=== PATIENT | female | born 1945 | race Asian ===

== ENCOUNTER 2024-10-30 02:03 | Emergency (ER) | payer OTHER, SELFPAY ==
[2024-10-30 02:10] VITALS: BP 170/91; PULSE 84; RESP 18; TEMP 36.7; O2SAT 98; BMI 30.8
--- NOTE | 2024-10-30 02:26 | PD.EDRME ---
Rapid Medical Screening Exam RME Arrival date/time: 10/30/24 02:03 79 year old female present to Ed for c/o of elevated blood pressure. I have greeted and performed a focused initial assessment of this patient. A comprehensive ED assessment and evaluation of the patient, analysis of all test results, and completion of the medical decision making process will be conducted by additional ED providers. Chief Complaint: General Adult/Misc Complain Time Seen by Provider: 10/30/24 02:14 Vital signs: Vital Signs Temperature 98.0 F 10/30/24 02:10 Pulse Rate 84 10/30/24 02:10 Respiratory Rate 18 10/30/24 02:10 Blood Pressure 170/91 H 10/30/24 02:10 Pulse Oximetry (%) 98 10/30/24 02:10 Oxygen Delivery Method Room Air 10/30/24 02:10
[2024-10-30 03:34] VITALS: BP 185/82
--- NOTE | 2024-10-30 03:48 | PC.NURSE ---
AFTER RE CHECK OF BP, MICHELLE DENG TALK TO PT, AND PT LEFT ER.
== END 2024-10-30 03:49 | disposition left against medical advice (07) ==
PROVIDERS: Emergency Provider Emergency Medicine; PCP Family Medicine
DX: R03.0 Elevated blood-pressure reading, without diagnosis of hypertension (principal); Z53.29 Procedure and treatment not carried out because of patient's decision for other reasons
CPT/HCPCS: 99281

== ENCOUNTER 2025-01-07 01:01 | Emergency (ER) | payer OTHER, SELFPAY ==
[2025-01-07 01:03] VITALS: BP 186/79; PULSE 100; RESP 20; TEMP 36.6; O2SAT 100
[2025-01-07] MEDS: DIAZEPAM 5 MG TABLET PO (02:14)
--- NOTE | 2025-01-07 02:22 | PD.EDANX ---
ED Anxiety RME/HPI General Chief Complaint: Anxiety Stated Complaint: ANXIOUS Time Seen by Provider: 01/07/25 02:10 Arrival date/time: 01/07/25 01:01 79F with history of DM, HTN, and anxiety presents to ED for anxiety. Patient has no other complaints. Patient declines diagnostics including EKG. She will follow-up with PCP next week. Patient denies SI/HI. Limitations: no limitations Related Data Home Medications ?Medication ?Instructions ?Recorded ?Confirmed Losartan Potassium * (COZAAR *) 25 mg PO QDAY #0 tabs 01/05/14 11/02/23 amlodipine 5 mg tablet (Norvasc) 5 mg PO QDAY #0 tabs 01/05/14 11/02/23 glimepiride 4 mg tablet 4 mg PO QDAY ##0 01/05/14 11/02/23 simvastatin 20 mg tablet (Zocor) 20 mg PO HS #0 tabs 09/17/15 11/02/23 levothyroxine 50 mcg tablet 1 tab PO QDAY 08/11/22 11/02/23 zolpidem 5 mg tablet 5 mg PO HS 08/11/22 11/02/23 Allergies Allergy/AdvReac Type Severity Reaction Status Date / Time aspirin Allergy Mild Heartburn Verified 01/07/25 01:09 Review of Systems Review of Systems Systems Reviewed: All systems reviewed, normal except as documented Constitutional Constitutional: Reports system reviewed and no additional complaints, except as documented, Denies fever(s) and Denies headache(s) ENT Ears, Nose, Mouth, and Throat: Denies disequilibrium and Denies headache(s) Cardiovascular Cardiovascular: Reports system reviewed and no additional complaints, except as documented, Denies chest pain and Denies dyspnea Respiratory Respiratory: Reports system reviewed and no additional complaints, except as documented, Denies cough and Denies dyspnea Gastrointestinal Gastrointestinal: Reports system reviewed and no additional complaints, except as documented, Denies abdominal pain, Denies nausea and Denies vomiting Neurologic Neurologic: Reports system reviewed and no additional complaints, except as documented, Denies confusion, Denies disequilibrium and Denies headache(s) Psychiatric Psychiatric: Reports as per HPI, Reports anxiety and Denies confusion Past Medical History Past Medical History NEUROLOGIC: Negative Neurological Disorders or Seizures CARDIAC: Positive Cardiac Disorders, Hypercholesterolemia and Hypertension; Negative Congestive Heart Failure RESPIRATORY: Negative Chronic Obstructive Pulmonary Disease (COPD) GASTROINTESTINAL: Negative Gastrointestinal Disorders GENITOURINARY: Negative Genitourinary Disorders or Renal Disease REPRODUCTIVE: Positive Previous Pregnancies (2) MUSCULOSKELETAL: Positive Musculoskeletal Disorders, Arthritis and Osteoporosis ENDOCRINE: Positive Endocrine Disorders, Diabetes Mellitus Type 2 and Hypothyroidism; Negative Diabetes Mellitus Type 1 HEMATOLOGIC: Positive Blood Disorders and Anemia OTHER HISTORY: Negative Hospitalization, Autoimmune Disease, Falls, Blood Transfusions, Anesthesia Reactions, MRSA or Cancer Surgical History SURGICAL: Positive Section (x2) Social History SMOKING STATUS: Former smoker ED Exam General Limitations: Present no limitations General appearance: Present alert and in no apparent distress Head Head exam: Present atraumatic Eye Eye exam: Present normal appearance, PERRL and EOMI ENT ENT exam: Present normal exam, normal oropharynx and mucous membranes moist Neck Neck exam: Present normal inspection, full ROM and trachea midline Chest Chest inspection: Present normal inspection and symmetric chest wall rise Respiratory Respiratory exam: Present normal lung sounds bilaterally Cardiovascular Cardiovascular exam: Present regular rate, normal rhythm and normal heart sounds Abdominal Exam Abdominal exam: Present soft and normal bowel sounds Extremities Exam Extremities exam: Present normal inspection and full ROM Back Exam Back exam: Present normal inspection and full ROM Neurological Exam Neurological exam: Present alert, oriented X3 and CN II-XII intact Psychiatric Psychiatric exam: Present normal affect and anxious (mild) Skin Skin exam: Present warm, dry, intact and normal color Course Quality Measures none Orders Category Date Time Status Diazepam [Valium] Med 01/07/25 02:10 Discontinued 5 mg PO X1 ONE Vital Signs Vital signs: Vital Signs Temperature 97.8 F 01/07/25 01:03 Pulse Rate 100 01/07/25 01:03 Respiratory Rate 20 01/07/25 01:03 Blood Pressure 186/79 H 01/07/25 01:03 Pulse Oximetry (%) 100 01/07/25 01:03 Oxygen Delivery Method Room Air 01/07/25 01:03 Anxiety MDM Narrative MDM Narrative: 79F with history of DM, HTN, and anxiety presents to ED for anxiety. Patient has no other complaints. Patient declines diagnostics including EKG. She will follow-up with PCP next week. Patient denies SI/HI. Physical exam reveals clear lungs. RRR. Patient is afebrile, alert, but mildly anxious. Valium improved symptoms. Meds and director counseling bureau given. Patient data External records reviewed:: [facility] previous records Clinical information provided by:: patient Social determinants that could affect healthcare access:: mental health Patient has the following chronic illnesses:: anxiety, HTN, and DM How is presenting disease/condition affected by chronic disease/condition?: exacerbated by Evaluation data The following diagnostics were reviewed and interpreted by me:: other (specify) (none) Lab and/or radiology exams considered but not ordered:: not ordered Interpretation Summary: n/a Medications / Prescriptions Medications or Prescriptions considered but not ordered:: ordered Medication administrations:: Medication Administration History Discontinued Medications Diazepam (Diazepam 5 Mg Tablet) 5 mg PO X1 ONE Stop: 01/07/25 02:11 Last Admin: 01/07/25 02:14 Dose: 5 mg Documented By: CVL Consultations Consultation(s) initiated? (list below): No Diagnosis Differential diagnosis anxiety: hyperventilation, panic disorder and acute anxiety Most likely diagnosis given after review of the tests above:: anxiety Admission Indicated Admission indicated?: not indicated Admission Request Was there a request for admission?: No Disposition Plan Disposition Plan: Discharge Discharge Attestation Discharge Attestation: The patient and all family members were given an opportunity to ask questions and understood the discharge instructions. Discharge instructions specifically effects, indications for sooner follow up or return to the emergency department, and the expected course of current diagnosis. Patient condition: Stable Discharge Plan Plan Patient Disposition: HOME (Self Care) Disposition Comment: Stable Prescriptions/Referrals Prescriptions/Med Rec: No Action amlodipine [Norvasc] 5 MG tablet 5 mg PO QDAY Qty: 0 glimepiride 4 MG tablet 4 mg PO QDAY Qty: 0 Losartan Potassium * (COZAAR *) 25 MG tablet 25 mg PO QDAY Qty: 0 simvastatin [Zocor] 20 MG tablet 20 mg PO HS Qty: 0 levothyroxine 50 mcg tablet 1 tab PO QDAY zolpidem 5 mg Tablet 5 mg PO HS Problem List Clinical Impression: Anxiety Patient/Caregiver Discharge Instructions Additional Instructions: Please follow-up with PCP within 24-48 hours and return immediately if symptoms worsen. Print Language: Bahamian Stand Alone Forms: Patient Portal Info Letter ISH/JOANNA Supervising Physician ISH/JOANNA Supervising Physician: Dr. Duenas
[2025-01-07 02:27] VITALS: RESP 18
== END 2025-01-07 02:28 | disposition home or self-care (01) ==
LOC: SERX 02:24
PROVIDERS: Emergency Provider Emergency Medicine; PCP Family Medicine
DX: F41.9 Anxiety disorder, unspecified (principal); E11.9 Type 2 diabetes mellitus without complications; I10 Essential (primary) hypertension; Z87.891 Personal history of nicotine dependence
CPT/HCPCS: 99282; A9270

== ENCOUNTER → 2025-05-11 | Outpatient (CLI) | payer OTHER, SELFPAY ==
[2025-05-11 11:10] LABS: Collection Type, Urine Clean Catch; Squamous Epithelial Cell,Urine 0 /hpf (0-5)
[2025-05-11 11:33] LABS: Basophils % (Auto) 1 % (0-2.5); Eosinophils # (Auto) 0.2 Thou/mm3 (0.0-0.5); Eosinophils % (Auto) 3 % (0-10); Hematocrit 37.9 % (36.0-46.0); Hemoglobin 12.9 g/dL (12.0-16.0); Immature Granulocytes % (Auto) 0 % (0-0); Immature Granulocytes Auto 0.01 Thou/mm3 (0.00-0.00); Lymphocytes # (Auto) 3.1 Thou/mm3 (1.0-4.8); Lymphocytes % (Auto) 57 % (10-50); Mean Corpuscular Hemoglobin 29.7 pg (25.0-35.0); Mean Corpuscular Volume 87 fL (80-100); Monocytes # (Auto) 0.3 Thou/mm3 (0.0-0.8); Monocytes % (Auto) 6 % (0-12); Neutrophils # (Auto) 1.8 Thou/mm3 (1.8-7.7); Neutrophils % (Auto) 33 % (37-80); Nucleated Red Blood Cell % 0 /100 WBC (0); Platelet Count 169 Thou/mm3 (140-440); RDW Standard Deviation 49.3 fL (36.4-46.3); Red Blood Count 4.35 Miln/mm3 (4.00-5.20); White Blood Count 5.5 Thou/mm3 (3.6-11.0)
[2025-05-11 11:45] LABS: Bilirubin,Urine Negative (Negative); Blood,Urine 2+ (Negative); Clarity,Urine Clear (Clear/Hazy); Color,Urine Lt-Yellow (Lt Yel-Yel); Culture Indicated,Urine Not Indicated; Glucose, Urine Negative (Negative); Ketones,Urine Negative (Negative); Leukocyte Esterase,Urine Positive (Negative); Nitrite,Urine Negative (Negative); Protein,Urine Negative (Neg - Trace); RBC,Urine 5 /hpf (0-3); Specific Gravity,Urine 1.019 (1.001-1.035); Urobilinogen,Urine Negative mg/dL (0.0-1.0); WBC,Urine 3 /hpf (0-5)
[2025-05-11 11:53] LABS: Glucose Estimated Average 146 mg/dL (80-131); Hemoglobin A1C 6.7 % Hgb (4.8-6.0)
[2025-05-11 12:01] LABS: Creatinine MALB Rnd Ur 96 mg/dL (30-125); Microalbumin Creat Ratio 6 mg/gCrea (<30); Microalbumin, Random Urine 6 mg/L (0-300)
[2025-05-11 12:12] LABS: Alanine Aminotransferase 10 U/L (10-49); Albumin, Serum 4.6 gm/dL (3.4-4.8); Albumin/Globulin Ratio 2.2 (1.2-2.2); Alkaline Phosphatase 54 U/L (46-116); Anion Gap 12 (7-16); BUN/Creatinine Ratio 26 Ratio (12-20); Bilirubin,Total 0.4 mg/dL (0.3-1.2); Blood Urea Nitrogen 21 mg/dL (9-23); Calcium 9.1 mg/dL (8.3-10.6); Calcium (Corrected) 9.1 mg/dL (8.5-10.1); Carbon Dioxide 25.4 mMol/L (20.0-31.0); Cardiac Risk Estimate 2.5 RATIO (3.7-5.6); Chloride 107 mMol/L (98-107); Cholesterol 241 mg/dL (132-200); Creatinine (Component) 0.8 mg/dL (0.6-1.3); Free T4 (Free Thyroxine) 1.28 ng/dL (0.89-1.76); Globulin 2.1 gm/dL (2.3-3.5); Glucose 100 mg/dL (74-106); HDL Cholesterol 95 mg/dL (40-60); LDL Cholesterol,Calculated 127 mg/dL (0-130); Osmolality,Calculated 289 (275-295); Potassium 4.6 mMol/L (3.4-5.1); Sodium 144 mMol/L (136-145); Total Protein 6.7 gm/dL (5.7-8.2); Triglycerides 93 mg/dL (30-150); eGFR > 60 See Note
[2025-05-11 13:11] LABS: Vitamin D 25 Hydroxy Total 26.9 ng/mL (7.3-40.2)
== END | disposition home or self-care (01) ==
LOC: COPL 10:06
PROVIDERS: PCP Family Medicine; Referring Provider Registered Nurse; Visit Provider Registered Nurse
DX: Z00.00 Encounter for general adult medical examination without abnormal findings (principal); E03.9 Hypothyroidism, unspecified; E11.65 Type 2 diabetes mellitus with hyperglycemia
CPT/HCPCS: 36415; 80053; 80061; 81001; 82043; 82306; 82570; 83036; 84439; 84443; 85025

== ENCOUNTER 2025-09-01 22:38 | Emergency (ER) | payer OTHER, SELFPAY ==
[2025-09-01 22:39] VITALS: BMI 30.2
[2025-09-01 23:05] VITALS: BP 174/93; PULSE 84; RESP 18; TEMP 36.9; O2SAT 98
--- NOTE | 2025-09-01 23:28 | PD.EDURI ---
Upper Respiratory Inf. RME/HPI General Chief Complaint: General Adult/Misc Complain Stated Complaint: SWOLLEN GLAND TO BEHIND LEFT EAR Time Seen by Provider: 09/01/25 23:11 Arrival date/time: 09/01/25 22:38 79F with history of DM, HTN, hypothyroidism and anxiety presents to ED with 1 day of swollen lump behind L ear. Patient denies any ENT pain or URI symptoms. Limitations: no limitations Related Data Home Medications ?Medication ?Instructions ?Recorded ?Confirmed Losartan Potassium * (COZAAR *) 25 mg PO QDAY #0 tabs 01/05/14 11/02/23 amlodipine 5 mg tablet (Norvasc) 5 mg PO QDAY #0 tabs 01/05/14 11/02/23 glimepiride 4 mg tablet 4 mg PO QDAY ##0 01/05/14 11/02/23 simvastatin 20 mg tablet (Zocor) 20 mg PO HS #0 tabs 09/17/15 11/02/23 levothyroxine 50 mcg tablet 1 tab PO QDAY 08/11/22 11/02/23 zolpidem 5 mg tablet 5 mg PO HS 08/11/22 11/02/23 Previous Rx's ?Medication ?Instructions ?Recorded amoxicillin 875 mg-potassium 1 tab PO BID 7 days #14 tabs 09/01/25 clavulanate 125 mg tablet Allergies Allergy/AdvReac Type Severity Reaction Status Date / Time aspirin Allergy Mild Heartburn Verified 09/01/25 22:39 Review of Systems Review of Systems Systems Reviewed: All systems reviewed, normal except as documented Integumentary/Breasts Skin/Breast: Reports as per HPI and Reports skin pain Past Medical History Past Medical History NEUROLOGIC: Negative Neurological Disorders or Seizures CARDIAC: Positive Cardiac Disorders, Hypercholesterolemia and Hypertension; Negative Congestive Heart Failure RESPIRATORY: Negative Chronic Obstructive Pulmonary Disease (COPD) GASTROINTESTINAL: Negative Gastrointestinal Disorders GENITOURINARY: Negative Genitourinary Disorders or Renal Disease REPRODUCTIVE: Positive Previous Pregnancies (2) MUSCULOSKELETAL: Positive Musculoskeletal Disorders, Arthritis and Osteoporosis ENDOCRINE: Positive Endocrine Disorders, Diabetes Mellitus Type 2 and Hypothyroidism; Negative Diabetes Mellitus Type 1 HEMATOLOGIC: Positive Blood Disorders and Anemia OTHER HISTORY: Negative Hospitalization, Autoimmune Disease, Falls, Blood Transfusions, Anesthesia Reactions, MRSA or Cancer Surgical History SURGICAL: Positive Section (x2) Social History SMOKING STATUS: Never smoker ED Exam General Limitations: Present no limitations General appearance: Present alert and in no apparent distress Head Head exam: Present atraumatic ENT ENT exam: Present normal exam, normal oropharynx and mucous membranes moist Neck Neck exam: Present full ROM, trachea midline and lymphadenopathy (behind L ear mild) Chest Chest inspection: Present normal inspection and symmetric chest wall rise Neurological Exam Neurological exam: Present alert, oriented X3 and CN II-XII intact Psychiatric Psychiatric exam: Present normal affect and normal mood Skin Skin exam: Present warm, dry, intact and normal color Course Quality Measures none Vital Signs Vital signs: Vital Signs Temperature 98.4 F 09/01/25 23:05 Pulse Rate 84 09/01/25 23:05 Respiratory Rate 18 09/01/25 23:05 Blood Pressure 174/93 H 09/01/25 23:05 Pulse Oximetry (%) 98 09/01/25 23:05 Oxygen Delivery Method Room Air 09/01/25 23:05 O2 at 98% on RA and WNLs Upper Respiratory Infection MDM Narrative MDM Narrative:: 79F with history of DM, HTN, hypothyroidism and anxiety presents to ED with 1 day of swollen lump behind L ear. Patient denies any ENT pain or URI symptoms. Physical exam reveals clear ENT. Mild lump behind L ear. No redness or swelling. Patient is afebrile, calm, and alert. Will give short course of ABX to cover common ENT pathogens. Patient data External records reviewed:: [facility] previous records Clinical information provided by:: patient Social determinants that could affect healthcare access:: none Patient has the following chronic illnesses:: DM, HTN, hypothyroidism and anxiety How is presenting disease/condition affected by chronic disease/condition?: exacerbated by Evaluation data The following diagnostics were reviewed and interpreted by me:: other (specify) (none) Lab and/or radiology exams considered but not ordered:: not ordered Interpretation Summary: n/a Medications / Prescriptions Medications or Prescriptions considered but not ordered:: not ordered Medication administrations:: n/a Consultations Consultation(s) initiated? (list below): No Diagnosis Upper Respiratory Differential Diagnosis: upper respiratory infection, croup, otitis media, sinusitis, viral infection, bronchitis, influenza, pharyngitis and other (lymphadenopathy) Most likely diagnosis given after review of the tests above:: lymphadenopathy Admission Indicated Admission indicated?: not indicated Admission Request Was there a request for admission?: No Disposition Plan Disposition Plan: Discharge Discharge Attestation Discharge Attestation: The patient and all family members were given an opportunity to ask questions and understood the discharge instructions. Discharge instructions specifically effects, indications for sooner follow up or return to the emergency department, and the expected course of current diagnosis. Patient condition: Stable Discharge Plan Plan Patient Disposition: HOME (Self Care) Discharge Disposition comment: Stable Prescriptions/Referrals Prescriptions/Med Rec: New amoxicillin-pot clavulanate 875-125 mg tablet 1 tab PO BID 7 Days Qty: 14 0RF No Action amlodipine [Norvasc] 5 MG tablet 5 mg PO QDAY Qty: 0 glimepiride 4 MG tablet 4 mg PO QDAY Qty: 0 Losartan Potassium * (COZAAR *) 25 MG tablet 25 mg PO QDAY Qty: 0 simvastatin [Zocor] 20 MG tablet 20 mg PO HS Qty: 0 levothyroxine 50 mcg tablet 1 tab PO QDAY zolpidem 5 mg Tablet 5 mg PO HS Problem List Clinical Impression: Lymphadenopathy Patient/Caregiver Discharge Instructions Education Materials: Lymphadenopathy Additional Instructions: Please follow-up with PCP within 24-48 hours and return immediately if symptoms worsen. Print Language: Namibian Stand Alone Forms: Patient Portal Info Letter ISH/JOANNA Supervising Physician ISH/JOANNA Supervising Physician: Dr. Gr
== END 2025-09-01 23:19 | disposition home or self-care (01) ==
LOC: SERX 23:25
PROVIDERS: Emergency Provider Emergency Medicine; PCP Registered Nurse
DX: R59.0 Localized enlarged lymph nodes (principal); E11.9 Type 2 diabetes mellitus without complications; I10 Essential (primary) hypertension; E03.9 Hypothyroidism, unspecified; F41.9 Anxiety disorder, unspecified
CPT/HCPCS: 99281

== ENCOUNTER → 2025-09-20 | Outpatient (CLI) | payer OTHER, SELFPAY ==
--- NOTE | 2025-09-20 12:30 | XR_ITS ---
Examination: Breast ultrasound, unilateral, left complete Date and time of exam: September 20, 2025, 1216 hours INDICATIONS: Mammogram July 04, 2000 2425 mm focal asymmetry upper left breast Technique: Real-time angela scale ultrasonographic imaging performed left breast including all 4 quadrants as well as nipple retroareolar and axillary region. Findings: No cystic or solid mass IMPRESSION: BI-RADS Category 1: Negative study
--- NOTE | 2025-09-20 13:00 | XR_ITS ---
Examination: Diagnostic digital mammography, unilateral, left Computer aided detection 3-D breast Tomosynthesis, unilateral Date and time of exam: September 20, 2025, 1302 hours INDICATIONS: Mammogram July 04, 2024 25 mm focal asymmetry upper left breast Technique: Nonmagnified MLO, CC views of the left breast have been obtained, reconstructed from 3-D Tomosynthesis images. R2 computer aided detection program utilized for evaluation of suspicious masses and/or abnormal calcifications. 3-D Tomosynthesis images obtained. Findings: The breast is heterogeneously dense, which may obscure small masses Stable focal asymmetry upper left breast on the spot compression left MLO view No suspicious mass Impression: BI-RADS category 2: Benign findings Return to yearly follow-up mammography
== END | disposition home or self-care (01) ==
LOC: CDIM 11:54
PROVIDERS: PCP Family Medicine; Referring Provider Registered Nurse; Visit Provider Registered Nurse
DX: R92.322 Mammographic fibroglandular density, left breast (principal)
CPT/HCPCS: 76641; 77061; 77065; G0279

== ENCOUNTER → 2025-09-26 | Outpatient (CLI) | payer OTHER, SELFPAY | END | disposition home or self-care (01) | LOC: SLDO 13:52 | PROVIDERS: PCP Family Medicine; Referring Provider Physician Assistant; Visit Provider Physician Assistant | DX: N39.0 Urinary tract infection, site not specified (principal) | CPT/HCPCS: 87077; 87086; 87186 ==